=== PATIENT | female | born 1945 | race Caucasian/White ===

== ENCOUNTER → 2017-07-22 09:31 | Emergency (ER) | payer MEDICARE ==
[~2017-07-22 09:31] MED LIST: Lidocaine 2% VISCOUS* 15 ML UDC ONE; Lidocaine 2% VISCOUS* 15 ML UDC PO ONE
[2017-07-22 09:36] VITALS: BP 173/59
--- NOTE | 2017-07-22 10:39 | RAD ---
INDICATION: Sensation of pill stuck in the throat. COMPARISON: September 11, [address] TECHNIQUE: Multidetector CT images skull base to lung apices without contrast. Multiplanar reformation. REPORT: Artifact from dental amalgam. No retained foreign body evident at the pharynx or visualized proximal esophagus or trachea. Unremarkable pharyngeal mucosal space contours. Unremarkable epiglottis. Grossly symmetric. Former recess is. Unremarkable false and true vocal cords. No lymphadenopathy evident. Unremarkable symmetric submandibular and thyroid glands. No CT abnormality of the thyroid gland. Atherosclerotic calcification at the bilateral carotid bifurcations. Minimal retained secretions at the LEFT ethmoid and sphenoid sinus. Multilevel cervical spine degenerative spondylosis including prominent anterior osteophytes without significant interval change which may result in globus sensation possibly mimicking a foreign body at the throat. No suspicious focal osseous lesions evident. IMPRESSION: No retained foreign body evident at the pharynx or visualized proximal esophagus or trachea. Multilevel cervical spine degenerative spondylosis including prominent anterior osteophytes without significant interval change which may result in globus sensation possibly mimicking a foreign body at the throat.
--- NOTE | 2017-07-23 16:16 | ED ---
Jihan Hamlin Edward, scribed for Tong Maurer MD on 07/22/17 at 0951 . Throat Pain/Nasal Congestion - HPI Summary HPI Summary: 71 y/o female presents to the ED c/o sudden onset FB sensation in her throat starting at 04:00 this morning. Pt took her thyroid pill at 04:00 this morning and states the pill wont go down. The symptoms are not aggravated or alleviated by anything. Pt still has FB sensation in the ED. Pt now reports reflux due to the pill. Pt was able to have cottage cheese. PMHx no renal insufficiency. - History of Current Complaint Chief Complaint: EDForeignBodyEsophag Hx Obtained From: Patient Onset/Duration: Sudden Onset, Lasting Hours Associated Signs And Symptoms: Positive: FB Sensation - Allergies/Home Medications Allergies/Adverse Reactions: Allergies Allergy/AdvReac Type Severity Reaction Status Date / Time No Known Allergies Allergy Verified 07/22/17 09:43 PMH/Surg Hx/FS Hx/Imm Hx Previously Healthy: No Cardiovascular History: Reports: Hx Hypercholesterolemia, Hx Hypertension, Hx Myocardial Infarction History: Denies: Hx Acute Renal Failure - Cancer History Cancer Type, Location and Year: Breast CA Hx Chemotherapy: Yes Hx Radiation Therapy: No - Surgical History Surgery Procedure, Year, and Place: mastectomy with reconstruction, hysterectomy , hernia repair Infectious Disease History: No Infectious Disease History: Denies: Traveled Outside the [place] in Last 30 Days - Family History Known Family History: Positive: Cardiac Disease, Diabetes - Social History Alcohol Use: Daily Alcohol Amount: a few glasses of wine/day Hx Substance Use: No Substance Use Type: Reports: None Hx Tobacco Use: No Smoking Status (MU): Never Smoked Tobacco Review of Systems Constitutional: Negative Eyes: Negative Positive: Other - FB sensation in throat Cardiovascular: Negative Respiratory: Negative Gastrointestinal: Other - reflux due to pill Genitourinary: Negative Musculoskeletal: Negative Skin: Negative Neurological: Negative Psychological: Normal All Other Systems Reviewed And Are Negative: Yes Physical Exam - Summary Physical Exam Summary: VITAL SIGNS: Reviewed. GENERAL: ~Patient is a well-developed and nourished female who is lying comfortable in the stretcher. ~Patient is not in any acute respiratory distress. HEAD AND FACE: No signs of trauma. ~No ecchymosis, hematomas or skull depressions. No sinus tenderness. EYES: PERRLA, EOMI x 2, No injected conjunctiva, no nystagmus. EARS: Hearing grossly intact. Ear canals and tympanic membranes are within normal limits. MOUTH: Oropharynx within normal limits. NECK: Supple, trachea is midline, no adenopathy, no JVD, no carotid bruit, no c- spine tenderness, neck with full ROM. CHEST: Symmetric, no tenderness at palpation LUNGS: Clear to auscultation bilaterally. No wheezing or crackles. CVS: Regular rate and rhythm, S1 and S2 present, no murmurs or gallops appreciated. ABDOMEN: Soft, non-tender. No signs of distention. No rebound no guarding, and no masses palpated. Bowel sounds are normal. EXTREMITIES: FROM in all major joints, no edema, no cyanosis or clubbing. NEURO: Alert and oriented x 3. No acute neurological deficits. Speech is normal and follows commands. SKIN: Dry and warm Triage Information Reviewed: Yes Vital Signs On Initial Exam: Initial Vitals Temp Pulse Resp BP Pulse Ox 97.8 F 60 15 173/59 99 07/22/17 09:32 07/22/17 09:32 07/22/17 09:32 07/22/17 09:32 07/22/17 09:32 Vital Signs Reviewed: Yes - [place] Coma Scale Coma Scale Total: 15 Diagnostics - Vital Signs Vital Signs Temp Pulse Resp BP Pulse Ox 07/22/17 09:32 97.8 F 60 15 173/59 99 - Laboratory Lab Statement: Any lab studies that have been ordered have been reviewed, and results considered in the medical decision making process. - CT NECK CT CT Interpretation: No Acute Changes - No retained foreign body evident at the pharynx or visualized proximal esophagus or trachea. Multilevel cervical spine degenerative spondylosis including prominent anterior osteophytes without significant interval change which may result in globus sensation possibly mimicking a foreign body at the throat. CT Interpretation Completed By: Radiologist Re-Evaluation - Re-Evaluation 11:30 Re-Evaluation Time: 11:30 Comment: Discuss CT results EENT Course/Dx - Course Assessment/Plan: 71 y/o female presents to the ED c/o FB sensation in her throat starting at 04:00 this morning. Pt took her thyroid pill at 04:00 this morning and states the pill wont go down. The symptoms are not aggravated or alleviated by anything. Pt still has FB sensation in the ED. Pt now reports reflux due to the pill. Pt was able to have cottage cheese. PMHx no renal insufficiency. NECK CT SHOWS No retained foreign body evident at the pharynx or visualized proximal esophagus or trachea. Multilevel cervical spine degenerative spondylosis including prominent anterior osteophytes without significant interval change which may result in globus sensation possibly mimicking a foreign body at the throat. Test results w/o significant abnormalities. CT shows no foreign body. Therefore I believe the pt has an irritation. Therefore the pt will be d/c home with f/u with PCP. Pt given viscous lidocaine and the symptoms improved. The patient is hemodynamically stable, A&Ox3. - Differential Diagnoses Differential Diagnoses: Pharyngitis, Tonsilitis, Uveitis - Diagnoses Provider Diagnoses: Pharyngeal irritation Discharge - Discharge Plan Condition: Stable Disposition: HOME Patient Education Materials: Foreign Body in Pharynx (ED) Referrals: Sinan Michelle MD [Primary Care Provider] - 3 Days (PLEASE F/U IN 2-3 DAYS) The documentation as recorded by the Jihan winkler Edward accurately reflects the service I personally performed and the decisions made by , Tong Maurer MD.
== END | disposition home or self-care (01) ==
LOC: ED 09:31
DX: J39.2 Other diseases of pharynx (principal); E78.00 Pure hypercholesterolemia, unspecified; I21.3 ST elevation (STEMI) myocardial infarction of unspecified site; I10 Essential (primary) hypertension; Z85.3 Personal history of malignant neoplasm of breast
CPT/HCPCS: 70490; 99281